=== PATIENT | female | born 1990 | race Caucasian/White ===

== ENCOUNTER 2017-03-14 20:42 | Emergency (ER) | payer MEDICAID ==
[2017-03-14] MEDS ORDERED: HYDROmorphone 1 MG/ML Syringe IM ONE (21:37)
--- NOTE | 2017-03-14 21:40 | EDM.PDOC ---
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 Stated Complaint: BLEEDING Time Seen by Provider: 03/14/17 21:20 Source of Information: Reports: Patient, RN Notes Reviewed History Limitations: Reports: No Limitations - History of Present Illness INITIAL COMMENTS - FREE TEXT/NARRATIVE: 26-year-old female presents to the emergency department day complaint of vaginal bleeding, she is 7 days she is bleeding approximately through a pad every hour and a half it is mainly clots she does not feel lightheaded is not passing out no fevers, she is a 3 para 3 status post vaginal delivery she did have lacerations with repair no complications that she is aware lower back Pain Score (Numeric/FACES): 7 vaginal Pain Score (Numeric/FACES): 6 rectal Pain Score (Numeric/FACES): 8 - Related Data Allergies Allergy/AdvReac Type Severity Reaction Status Date / Time amoxicillin Allergy Airway Verified 03/14/17 21:01 Tightness Penicillins Allergy Airway Verified 03/14/17 21:01 Tightness Home Meds: Home Meds NK [No Known Home Meds] 03/14/17 [History] Past Medical History HEENT History: Reports: Impaired Vision Respiratory History: Reports: Asthma Gastrointestinal History: Reports: Hemorrhoids 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: Neurological History: Reports: Migraines Psychiatric History: Reports: Addiction, Other (See Below) Other Psychiatric History: benzodiazapines - Infectious Disease History Infectious Disease History: Reports: Chicken Pox - Past Surgical History HEENT Surgical History: Reports: Eye Surgery Social & Family History - Tobacco Use Smoking Status *Q: Current Every Day Smoker Years of Tobacco use: 13 Packs/Tins Daily: 0.7 - Caffeine Use Caffeine Use: Reports: Coffee, Soda - Recreational Drug Use Recreational Drug Use: Yes Drug Use in Last 12 Months: Yes Recreational Drug Type: Reports: Benzodiazepines Recreational Drug Use Frequency: Daily ED ROS GENERAL - Review of Systems Review Of Systems: See Below Constitutional: Denies: Fever, Chills HEENT: Reports: No Symptoms Respiratory: Reports: No Symptoms Cardiovascular: Reports: No Symptoms GI/Abdominal: Reports: Abdominal Pain (Crampy) : Reports: Irregular Menses, Pain (Crampy) ED EXAM - Physical Exam Exam: See Below Text/Narrative:: Vaginal exam done in the presence of nursing staff I don't appreciate any external bleeding there is no tears speculum exam reveals dark blood at the internal os which is tender to palpation there are no internal tears noted Exam Limited By: No Limitations General Appearance: Alert, WD/WN, No Apparent Distress Respiratory/Chest: No Respiratory Distress GI/Abdominal Exam: Soft, Non-Tender Course - Vital Signs Last Recorded V/S: Last Vital Signs Temp 97.3 F 03/14/17 20:55 Pulse 89 03/14/17 20:55 Resp 16 03/14/17 20:55 BP 128/81 03/14/17 20:55 Pulse Ox 97 03/14/17 20:55 - Orders/Labs/Meds Orders: Active Orders 24 hr Category Date Time Status Pelvis Non OB Comp [US] Stat Exams 03/14/17 21:37 Ordered Transvaginal Non OB [US] Stat Exams 03/14/17 Ordered Labs: Laboratory Tests 03/14/17 03/14/17 03/14/17 Range/Units 21:50 21:50 21:50 WBC 9.2 (4.5-11.0) K/uL RBC 3.35 (3.30-5.50) M/uL Hgb 10.7 L (12.0-15.0) g/dL Hct 32.4 L (36.0-48.0) % MCV 97 (80-98) fL MCH 32 H (27-31) pg MCHC 33 (32-36) % Plt Count 258 (150-400) K/uL Neut % (Auto) 56 (36-66) % Lymph % (Auto) 36 (24-44) % Dixon % (Auto) 5 (2-6) % Eos % (Auto) 3 (2-4) % Baso % (Auto) 0 (0-1) % PT 10.0 (9.5-12.0) sec INR 0.94 (0.80-1.20) APTT 27.8 (27.0-36.0) sec Fibrinogen 349.7 (200.0-400.0) mg/dL HCG, Quant (0-6) mIU/mL 03/14/17 Range/Units 23:13 WBC (4.5-11.0) K/uL RBC (3.30-5.50) M/uL Hgb (12.0-15.0) g/dL Hct (36.0-48.0) % MCV (80-98) fL MCH (27-31) pg MCHC (32-36) % Plt Count (150-400) K/uL Neut % (Auto) (36-66) % Lymph % (Auto) (24-44) % Dixon % (Auto) (2-6) % Eos % (Auto) (2-4) % Baso % (Auto) (0-1) % PT (9.5-12.0) sec INR (0.80-1.20) APTT (27.0-36.0) sec Fibrinogen (200.0-400.0) mg/dL HCG, Quant 9 H (0-6) mIU/mL Meds: Medications Discontinued Medications Generic Name Dose Route Start Last Admin Trade Name Freq PRN Reason Stop Dose Admin Hydromorphone HCl 1 mg 03/14/17 21:37 03/14/17 22:21 Dilaudid IM 03/14/17 21:38 1 mg ONETIME ONE Administration Departure - Departure Time of Disposition: 00:31 Disposition: Home, Self-Care 01 Condition: Good Clinical Impression: bleeding Qualifiers: hemorrhage type: unspecified Qualified Code(s): O72.1 - Other immediate hemorrhage - Discharge Information Referrals: PCP,None [Primary Care Provider] - Forms: ED Department Discharge Additional Instructions: Please call return to the emergency department worsening of symptoms - My Orders Last 24 Hours: My Active Orders 03/14/17 Transvaginal Non OB [US] Stat 03/14/17 21:37 Pelvis Non OB Comp [US] Stat - Assessment/Plan Last 24 Hours: My Active Orders 03/14/17 Transvaginal Non OB [US] Stat 03/14/17 21:37 Pelvis Non OB Comp [US] Stat Plan: Assessment Acuity = acute Site and laterality = bleeding Etiology = unclear etiology normal process versus secondary hemorrhage Manifestations = none Location of injury = Home Lab values = hemoglobin 10.7 consistent normochromic anemia, quite elation studies are normal ultrasound was inconclusive hematoma versus retained products of conception Plan Called and discussed case with ELECTRIC POWER MACHINE OPERATOR on-call [facility] felt the lab work was reassuring recommended watchful waiting at this time certainly any changes increase in bleeding or fever recommended transfer to [place] for further evaluation, I did discuss this with the patient she was in agreement with the plan will do continued counseling on vaginal bleeding Patient was in agreement with the plan all questions were answered, they were instructed to return to the emergency department or call for worsening symptoms. This note was dictated using [email or web address] voice recognition software please call with any questions.
== END 2017-03-15 01:41 | disposition home or self-care (01) ==
LOC: JP.ED 20:42
DX: O72.1 Other immediate postpartum hemorrhage (principal); O99.335 Smoking (tobacco) complicating the puerperium; F17.210 Nicotine dependence, cigarettes, uncomplicated; Z88.0 Allergy status to penicillin; Z88.1 Allergy status to other antibiotic agents
CPT/HCPCS: 36415; 76830; 76856; 84702; 85025; 85384; 85610; 85730; 96372; 99284; J1170